=== PATIENT | female | born 2000 | race Caucasian/White ===

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

== ENCOUNTER 2018-09-01 14:05 | Emergency (ER) | payer BC ==
[2018-09-01] MEDS ORDERED: ALBUTEROL 0.5% (NEB) 2.5 MG/0.5 ML AMP INH (14:22)
[2018-09-01] MEDS: DEXAMETHASONE 10 MG/ML 1 ML INJ IV (14:31)
[2018-09-01] MEDS: MAGNESIUM SULFATE 2 GM/50 ML 50 ML IVPB (14:32)
[2018-09-01] MEDS: IPRATROPIUM (NEB) 0.5 MG/2.5 ML AMP NEB (14:56)
[2018-09-01] MEDS: LEVALBUTEROL (NEB) 1.25 MG/0.5 ML AMP INH (14:56)
== END 2018-09-01 16:32 | disposition home or self-care (01) ==
LOC: FTE 14:05
DX: J45.901 Unspecified asthma with (acute) exacerbation (principal); Z87.891 Personal history of nicotine dependence
CPT/HCPCS: 71045; 94644; 96365; 96366; 96375; 99284-25